=== PATIENT | female | born 1980 ===

== ENCOUNTER 2018-07-10 07:43 | Emergency (ER) | payer BC ==
[2018-07-10] MEDS ORDERED: Albuterol-Ipratrop 3 mg / 0.5 (3 ml) UD INH STA (08:00)
--- NOTE | 2018-07-10 08:05 | C.PDOC ---
History Of Present Illness 27 y/o female presents to the ER complaining of cough for the past 5 days. Cough is productive of sputum. She reports feeling short of breath since yesterday. Denies any fever, chest pain, headache, bodyaches, weakness or fatigue. Time Seen by Provider: 07/10/18 07:55 Chief Complaint (Nursing): Cough, Cold, Congestion History Per: Patient History/Exam Limitations: no limitations Onset/Duration Of Symptoms: Days Current Symptoms Are (Timing): Still Present Severity: Moderate Past Medical History Reviewed: Historical Data, Nursing Documentation, Vital Signs Vital Signs: Last Vital Signs Temp 98.2 F 07/10/18 07:49 Pulse 94 H 07/10/18 07:49 Resp 22 07/10/18 07:49 BP 152/96 H 07/10/18 07:49 Pulse Ox 96 07/10/18 07:49 - Medical History PMH: No Chronic Diseases Surgical History: No Surg Hx Family History: States: No Known Family Hx - Social History Hx Alcohol Use: No Hx Substance Use: No - Immunization History Hx Tetanus Toxoid Vaccination: No Hx Influenza Vaccination: No Hx Pneumococcal Vaccination: No Review Of Systems Constitutional: Negative for: Fever, Chills, Weakness, Malaise Cardiovascular: Negative for: Chest Pain Respiratory: Positive for: Cough, Shortness of Breath, Sputum Neurological: Negative for: Headache Physical Exam - Physical Exam Appears: Non-toxic, No Acute Distress Skin: Normal Color, Warm, Dry Head: Atraumatic, Normacephalic Eye(s): bilateral: Normal Inspection, EOMI Ear(s): Bilateral: Normal Nose: Normal Oral Mucosa: Moist Throat: Normal, No Erythema, No Exudate Neck: Supple Chest: Symmetrical Cardiovascular: Rhythm Regular Respiratory: No Rales, Rhonchi (scattered rhonchi), No Wheezing Gastrointestinal/Abdominal: Normal Exam, Soft, No Tenderness, No Guarding, No Rebound Extremity: Bilateral: Atraumatic, Normal Color And Temperature, Normal ROM Neurological/Psych: Oriented x3, Normal Speech Gait: Steady ED Course And Treatment O2 Sat by Pulse Oximetry: 96 (RA) Pulse Ox Interpretation: Normal Medical Decision Making Medical Decision Making: Patient with cough and congestion for the past few days. Lungs have scattered rhonchi on exam. Patient treated with duoneb and prednisone. On re-evaluation the lungs sound clear with good air exchange. Plan is to discharge home with Zpack, cough medicine and prednisone. Patient to follow up with PCP or clinic in few days. Disposition Counseled Patient/Family Regarding: Need For Followup, Rx Given - Disposition Referrals: [facility] [Outside] [facility] [Outside] Disposition: HOME/ ROUTINE Disposition Time: 08:58 Condition: GOOD Additional Instructions: You have URI Take Zpack daily as prescribed Take Medrol dose pack as directed on pack Take Cough medicine as needed every 8 hours Take Tylenol or Motrin alternating every 4-6 hours for Fever 100.4F or higher. Rest and drink plenty of fluids. May use cool mist humidifier or vaporizer in room. Try taking over the counter antihistamine (Claritin, Tammi, Zyrtec) Can take Decongestant (Mucinex or Sudafed) as needed every 6-8 hours. Follow up with your primary medical doctor or clinic in 1 week for further evaluation. 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 - Scribe Statement The provider has reviewed the documentation as recorded by the Luciano Gutierrez Provider Attestation All medical record entries made by the Luciano were at my direction and personally dictated by me. I have reviewed the chart and agree that the record accurately reflects my personal performance of the history, physical exam, medical decision making, and the department course for this patient. I have also personally directed, reviewed, and agree with the discharge instructions and disposition.
[2018-07-10] MEDS ORDERED: Albuterol-Ipratrop 3 mg / 0.5 (3 ml) UD ONE (08:39)
[2018-07-10 09:20] VITALS: BP 147/96; PULSE 85; RESP 18; TEMP 98.5
[2018-07-10 13:29] VITALS: O2SAT 96
== END 2018-07-10 09:20 | disposition home or self-care (01) ==
LOC: C.ER 07:43
DX: J06.9 Acute upper respiratory infection, unspecified (principal)